=== PATIENT | female | born 1980 | race Two or more races ===

== ENCOUNTER 2020-07-20 18:26 | Emergency (ER) | payer MEDICAID ==
[~2020-07-20] VITALS: Ht 167.6 cm; Wt 93.0 kg
[2020-07-20] MEDS ORDERED: TRAMADOL 50MG TABLET PO ONE (18:45)
[2020-07-20 19:23] VITALS: BP 124/74
== END 2020-07-20 19:30 | disposition home or self-care (01) ==
LOC: ER 18:26
DX: S93.401A Sprain of unspecified ligament of right ankle, initial encounter (principal); S93.601A Unspecified sprain of right foot, initial encounter; X58.XXXA Exposure to other specified factors, initial encounter; Y93.89 Activity, other specified; Y92.89 Other specified places as the place of occurrence of the external cause; Y99.8 Other external cause status
CPT/HCPCS: 73610; 73630; 99284